=== PATIENT | female | born 1940 | race Caucasian/White ===

== ENCOUNTER 2017-05-30 10:15 | Inpatient (IN) | payer MEDICARE, BC ==
[2017-05-28 12:20] LABS: BASOPHILS % (AUTO) 0.3 % (0-1); EOSINOPHILS # (AUTO) 0.4 X10'3 (0-0.9); EOSINOPHILS % (AUTO) 4.6 % (0-6); LYMPHOCYTES # (AUTO) 1.9 X10'3 (1.1-4.8); LYMPHOCYTES % (AUTO) 24.2 % (21-51); MEAN CORPUSCULAR HEMOGLOBIN 31.3 PG (27.0-31.0); MEAN CORPUSCULAR HGB CONC 33.7 % (33.0-36.5); MEAN CORPUSCULAR VOLUME 92.9 FL (78-98); MEAN PLATELET VOLUME 7.7 FL (7.4-10.4); MONOCYTES # (AUTO) 0.7 X10'3 (0-0.9); MONOCYTES % (AUTO) 9.4 % (2-12); NEUTROPHILS # (AUTO) 4.8 X10'3 (1.8-7.7); NEUTROPHILS % (AUTO) 61.5 % (42-75); PRE OP HEMATOCRIT 40.2 % (35.0-45.0); PRE OP HEMOGLOBIN 13.6 g/dL (12.0-16.0); PRE OP PLATELET COUNT 282 X10'3 (140-440); RED BLOOD COUNT 4.33 X10'6 (4.20-5.60); RED CELL DISTRIBUTION WIDTH 15.1 % (11.5-14.5)
[2017-05-28 12:20] LABS: CLARITY,URINE SLIGHTLY CLOUDY (Clear); COLOR,URINE YELLOW (Yellow); GLUCOSE, URINE NEGATIVE (Neg); KETONES,URINE NEGATIVE (Neg); LEUKOCYTE ESTERASE ,URINE NEGATIVE (Neg); NITRITES, URINE NEGATIVE (Neg); OCCULT BLOOD,URINE NEGATIVE (Neg); PH,URINE 5.5 (4.8-8.0); PROTEIN,URINE NEGATIVE (Neg); UROBILINOGEN,URINE 0.2 E.U/dL (0.2-1.0)
[2017-05-28 12:26] LABS: UA COLLECTION TYPE NON-SPECIFIED
[2017-05-28 12:27] LABS: MUCUS STRANDS MODERATE /LPF (Neg); SQUAMOUS EPITHELIAL CELL,UR MODERATE /LPF (FEW)
[2017-05-28 12:28] LABS: BACTERIA,URINE 2+ /HPF (Neg); RBC,URINE 0-2 /HPF (0-2)
[2017-05-28 12:35] LABS: PRE OP INR 1.3 INR; PRE OP PROTIME 13.1 SECONDS (9.0-12.0)
[2017-05-28 12:38] LABS: ALBUMIN 3.4 G/DL (3.4-5.0); ALBUMIN/GLOBULIN RATIO 0.9 (1.1-1.5); ALKALINE PHOSPHATASE 105 IU/L (46-116); BLOOD UREA NITROGEN 28 MG/DL (7-18); BUN/CREATININE RATIO 30.4 (6.6-38.0); CALCIUM 9.2 MG/DL (8.5-10.1); CHLORIDE 103 MMOL/L (99-107); CREATININE 0.92 MG/DL (0.40-0.90); PRE OP ALT 67 U/L (30-65); PRE OP ANION GAP 10 (8-16); PRE OP AST 48 U/L (10-37); PRE OP BILIRUB, TOTAL 0.7 MG/DL (0.0-1.0); PRE OP GLUCOSE 81 MG/DL (70-104); PRE OP POTASSIUM 3.8 MMOL/L (3.4-5.1); PRE OP SODIUM 141 MMOL/L (135-145); TOTAL CARBON DIOXIDE 28.5 MMOL/L (24-32); TOTAL PROTEIN 7.4 G/DL (6.4-8.2); eGFR 59 ML/MIN
[2017-05-30] VITALS (15 sets, daily range): BP systolic 80–172; BP diastolic 32–75
[~2017-05-30] VITALS: Ht 158.8 cm; Wt 60.9 kg
[~2017-05-30 10:15] MED LIST: ALBU8.5H8 IH; AMIO200T57 PO; ATOR10TA70 PO; CARV6.253 PO; DOCUMENT DATE & TIME OF BETA-BLOCKER PO ONE; ESTR0.5T PO; FLUT1AER INH; FURO-149 PO; LEVO75TA7 PO; SPIR25TA3 PO; WARF2TAB7 PO; WARF3TAB56 PO; acetaminophen 325mg tablet PO ONE; albuterol 2.5 MG/3 ML nebule NEB ONE; cefazolin/dext.iso 2gm/50ml 50 ML IV ONE; celeCOXIB 100mg capsule PO ONE; famotidine 20mg tablet PO ONE; gabapentin 300mg capsule PO ONE; metoclopramide 5 mg/ml inj IV ONE; ringers solution, lacted 1,000 ML IV SCH
[2017-05-30] MEDS ORDERED: vancomycin/NS 1 GM ADD-VANTAGE 250 ML X 1 DOSE IV ONE (11:10)
[2017-05-30] MEDS: metoclopramide 10mg tablet PO SCH ×2 (11:23→20:00)
[2017-05-30] MEDS ORDERED: epiNEPHrine 1 mg/ml inj ONE ×3 (11:44→12:50)
[2017-05-30] MEDS ORDERED: ketorolac trometh. 30mg/ml inj. ONE (11:44)
[2017-05-30] MEDS ORDERED: cloNIDine hcl/PF 100mcg/ml inj ONE (11:44)
[2017-05-30] MEDS ORDERED: vancomycin 1,000mg inj ONE (11:45)
[2017-05-30] MEDS ORDERED: ROPIVAcaine 0.5% (5mg/ml) 30ml vial ONE (11:45)
[2017-05-30] MEDS ORDERED: tranexamic acid inj. 1,000 MG in normal saline 100ml IV soln 90 ML IV ONE (12:00)
[2017-05-30] MEDS ORDERED: furosemide 40mg tablet PO PRN (12:05)
[2017-05-30] MEDS ORDERED: BUPIVAcaine/PF 2.5 mg/ml (0.25%) 30ml vial ONE (12:15)
[2017-05-30] MEDS ORDERED: BUPIVAcaine/dex-water/PF 7.5 mg/ml 2ml ampul ONE (12:15)
[2017-05-30] MEDS ORDERED: MORPHINE SULFATE/PF 0.5 MG/ML 10ML AMPUL ONE (12:30)
[2017-05-30] MEDS ORDERED: MIDAZolam 1mg/ml 10ml vial ONE (12:30)
[2017-05-30] MEDS ORDERED: albuterol 2.5 MG/3 ML nebule NEB PRN (12:45)
[2017-05-30] MEDS ORDERED: heparin 10,000 units/1 ML INJ ONE (12:53)
[2017-05-30] MEDS ORDERED: ringers solution, lacted 1,000 ML IV SCH (13:22)
[2017-05-30] MEDS ORDERED: naloxone 2mg/2ml inj 1.2 MG in normal saline 500ml IV soln 500 ML IV PRN (13:23)
[2017-05-30] MEDS ORDERED: proCHLORperazine 10 MG/2 ml inj IV PRN (13:25)
[2017-05-30] MEDS ORDERED: morphine 2 MG/ML inj. syringe IV PRN ×2 (13:25)
[2017-05-30] MEDS ORDERED: ondansetron/PF 4mg/2ml inj IV PRN ×3 (13:25→15:40)
[2017-05-30] MEDS ORDERED: meperidine/PF 50mg/ml syringe IV PRN ×3 (13:25)
[2017-05-30] MEDS ORDERED: diphenhydrAMINE 50 mg/ml inj IV PRN (13:25)
[2017-05-30] MEDS ORDERED: ePHEDrine 50MG/ML INJ. ONE (13:43)
[2017-05-30] MEDS ORDERED: propofol inj 20 ML IV ONE ×2 (13:43)
[2017-05-30] MEDS ORDERED: bisacodyl 10mg suppository rectal RC PRN (15:40)
[2017-05-30] MEDS ORDERED: HYDROmorphone inj. 0.5 MG/0.5 ML DISP.SYRIN IV PRN ×2 (15:40)
[2017-05-30] MEDS ORDERED: diphenhydrAMINE 25mg capsule PO PRN ×2 (15:40)
[2017-05-30] MEDS ORDERED: HYDROcodone/acetaminophen 10/325mg tab PO PRN (15:40)
[2017-05-30] MEDS ORDERED: acetaminophen 325mg tablet PO PRN (15:40)
[2017-05-30] MEDS ORDERED: magnesium hydroxide 30ml (MOM) UD suspension PO PRN (15:40)
[2017-05-30] MEDS: cefazolin 1gm/NS 100mL 100 ML IV SCH ×2 (17:06→23:52)
[2017-05-30] MEDS: potassium cl 20mEq in 1/2 NS 1,000 ML IV SCH ×2 (17:06→23:38)
[2017-05-30 17:09] LABS: INR 1.1 INR; PROTHROMBIN TIME 11.7 SECONDS (9.0-12.0)
[2017-05-30 17:22] LABS: ALANINE AMINOTRANSFERASE 46 U/L (12-78); ALBUMIN 2.5 G/DL (3.4-5.0); ALBUMIN/GLOBULIN RATIO 0.9 (1.1-1.5); ALKALINE PHOSPHATASE 67 IU/L (46-116); ASPARTATE AMINO TRANSFERASE 43 U/L (10-37); BILIRUBIN,DIRECT 0.1 MG/DL (0-0.3); BILIRUBIN,TOTAL 0.5 MG/DL (0.1-1.0); TOTAL PROTEIN 5.2 G/DL (6.4-8.2)
[2017-05-30] MEDS ORDERED: vancomycin/NS 1 GM ADD-VANTAGE 250 ML IV SCH (20:00)
[2017-05-30] MEDS: carvedilol 6.25mg tablet PO SCH (20:00)
[2017-05-30] MEDS: ascorbic acid 500mg tablet PO SCH (20:33)
[2017-05-30] MEDS: gabapentin 300mg capsule PO SCH (20:34)
[2017-05-30] MEDS: sennosides 8.6mg tablet PO SCH (20:34)
[2017-05-30] MEDS ORDERED: warfarin 3mg tablet PO SCH (21:00)
[2017-05-31] VITALS (13 sets, daily range): BP systolic 94–137; BP diastolic 30–65
[2017-05-31] MEDS: metoclopramide 10mg tablet PO SCH ×4 (02:24→20:45)
[2017-05-31] MEDS: potassium cl 20mEq in 1/2 NS 1,000 ML IV SCH (03:31)
[2017-05-31] MEDS: HYDROcodone/acetaminophen 10/325mg tab PO PRN ×2 (05:12→20:49)
[2017-05-31 06:20] LABS: BASOPHILS % (AUTO) 0.5 % (0-1); EOSINOPHILS # (AUTO) 0.2 X10'3 (0-0.9); EOSINOPHILS % (AUTO) 4.2 % (0-6); HEMATOCRIT 27.1 % (35.0-45.0); HEMOGLOBIN 9.2 g/dl (12.0-16.0); LYMPHOCYTES # (AUTO) 1.1 X10'3 (1.1-4.8); LYMPHOCYTES % (AUTO) 20.3 % (21-51); MEAN CORPUSCULAR HEMOGLOBIN 31.2 PG (27.0-31.0); MEAN CORPUSCULAR VOLUME 91.7 FL (78-98); MEAN PLATELET VOLUME 7.7 FL (7.4-10.4); MONOCYTES # (AUTO) 0.5 X10'3 (0-0.9); MONOCYTES % (AUTO) 9.8 % (2-12); NEUTROPHILS # (AUTO) 3.5 X10'3 (1.8-7.7); NEUTROPHILS % (AUTO) 65.2 % (42-75); PLATELET COUNT 214 X10'3 (140-440); RED BLOOD COUNT 2.96 X10'6 (4.20-5.60); RED CELL DISTRIBUTION WIDTH 15.5 % (11.5-14.5); WHITE BLOOD COUNT 5.4 X10'3 (4.5-11.0)
[2017-05-31 06:29] LABS: INR 1.1 INR; PROTHROMBIN TIME 10.9 SECONDS (9.0-12.0)
[2017-05-31 06:31] LABS: POTASSIUM 4.7 MMOL/L (3.5-5.1); SODIUM 135 MMOL/L (135-145)
[2017-05-31 06:32] LABS: ANION GAP 9 (8-16); CHLORIDE 104 MMOL/L (99-107); TOTAL CARBON DIOXIDE 22.5 MMOL/L (24-32)
[2017-05-31] MEDS: carvedilol 6.25mg tablet PO SCH ×2 (07:03→20:00)
[2017-05-31] MEDS: atorvastatin 10mg tablet PO SCH (07:14)
[2017-05-31] MEDS: ascorbic acid 500mg tablet PO SCH ×2 (07:14→20:46)
[2017-05-31] MEDS: spironolactone 25 MG tablet PO SCH (07:14)
[2017-05-31] MEDS: gabapentin 300mg capsule PO SCH ×3 (07:14→20:47)
[2017-05-31] MEDS: levoTHYROXINE 75mcg tablet PO SCH (07:15)
[2017-05-31] MEDS: amiodarone 200mg tablet PO SCH (07:15)
[2017-05-31] MEDS: multivitamins, therapeutics tablet PO SCH (07:15)
[2017-05-31] MEDS: Protein Shake (high protein) 240ml (8oz) cup PO SCH (18:51)
[2017-05-31] MEDS: sennosides 8.6mg tablet PO SCH (20:47)
[2017-05-31] MEDS ORDERED: warfarin 10mg tablet PO ONE (21:00)
[2017-06-01] VITALS (15 sets, daily range): BP systolic 106–133; BP diastolic 29–72
[2017-06-01] MEDS: metoclopramide 10mg tablet PO SCH ×4 (02:14→20:13)
[2017-06-01] MEDS: HYDROcodone/acetaminophen 10/325mg tab PO PRN ×2 (04:45→13:39)
[2017-06-01 06:30] LABS: INR 1.1 INR; PROTHROMBIN TIME 11.1 SECONDS (9.0-12.0)
[2017-06-01 06:32] LABS: BASOPHILS % (AUTO) 0.1 % (0-1); EOSINOPHILS # (AUTO) 0.3 X10'3 (0-0.9); EOSINOPHILS % (AUTO) 4.7 % (0-6); HEMATOCRIT 22.3 % (35.0-45.0); HEMOGLOBIN 7.7 g/dl (12.0-16.0); LYMPHOCYTES # (AUTO) 1.3 X10'3 (1.1-4.8); LYMPHOCYTES % (AUTO) 19.9 % (21-51); MEAN CORPUSCULAR HEMOGLOBIN 31.6 PG (27.0-31.0); MEAN CORPUSCULAR HGB CONC 34.4 % (33.0-36.5); MEAN CORPUSCULAR VOLUME 91.8 FL (78-98); MEAN PLATELET VOLUME 7.9 FL (7.4-10.4); MONOCYTES # (AUTO) 0.7 X10'3 (0-0.9); NEUTROPHILS # (AUTO) 4.1 X10'3 (1.8-7.7); NEUTROPHILS % (AUTO) 64.3 % (42-75); PLATELET COUNT 190 X10'3 (140-440); RED BLOOD COUNT 2.43 X10'6 (4.20-5.60); RED CELL DISTRIBUTION WIDTH 15.4 % (11.5-14.5); WHITE BLOOD COUNT 6.3 X10'3 (4.5-11.0)
[2017-06-01] MEDS: levoTHYROXINE 75mcg tablet PO SCH (07:18)
[2017-06-01] MEDS: amiodarone 200mg tablet PO SCH (07:18)
[2017-06-01] MEDS: atorvastatin 10mg tablet PO SCH (07:18)
[2017-06-01] MEDS: gabapentin 300mg capsule PO SCH ×3 (07:18→20:12)
[2017-06-01] MEDS: ascorbic acid 500mg tablet PO SCH ×2 (07:18→20:13)
[2017-06-01] MEDS: carvedilol 6.25mg tablet PO SCH ×2 (07:18→20:12)
[2017-06-01] MEDS: multivitamins, therapeutics tablet PO SCH (07:18)
[2017-06-01] MEDS: spironolactone 25 MG tablet PO SCH (07:18)
[2017-06-01] MEDS: Protein Shake (high protein) 240ml (8oz) cup PO SCH ×3 (08:21→18:00)
[2017-06-01] MEDS: sennosides 8.6mg tablet PO SCH (20:13)
[2017-06-01] MEDS ORDERED: warfarin 5mg tablet PO ONE (21:00)
[2017-06-01] MEDS ORDERED: warfarin 1mg tablet PO SCH (21:00)
[2017-06-02] MEDS: metoclopramide 10mg tablet PO SCH ×2 (03:05→09:03)
[2017-06-02] MEDS: HYDROcodone/acetaminophen 10/325mg tab PO PRN (05:22)
[2017-06-02 06:02] LABS: BASOPHILS % (AUTO) 0.2 % (0-1); EOSINOPHILS # (AUTO) 0.4 X10'3 (0-0.9); EOSINOPHILS % (AUTO) 5.3 % (0-6); HEMATOCRIT 29.5 % (35.0-45.0); LYMPHOCYTES # (AUTO) 1.4 X10'3 (1.1-4.8); LYMPHOCYTES % (AUTO) 19.6 % (21-51); MEAN CORPUSCULAR HEMOGLOBIN 31.2 PG (27.0-31.0); MEAN CORPUSCULAR VOLUME 91.9 FL (78-98); MEAN PLATELET VOLUME 7.9 FL (7.4-10.4); NEUTROPHILS # (AUTO) 4.5 X10'3 (1.8-7.7); NEUTROPHILS % (AUTO) 61.9 % (42-75); PLATELET COUNT 196 X10'3 (140-440); RED BLOOD COUNT 3.21 X10'6 (4.20-5.60); RED CELL DISTRIBUTION WIDTH 15.4 % (11.5-14.5); WHITE BLOOD COUNT 7.3 X10'3 (4.5-11.0)
[2017-06-02 06:11] LABS: INR 1.4 INR; PROTHROMBIN TIME 14.7 SECONDS (9.0-12.0)
[2017-06-02 07:00] VITALS: BP 113/44
[2017-06-02] MEDS ORDERED: warfarin 5mg tablet PO ONE (09:00)
[2017-06-02] MEDS: ascorbic acid 500mg tablet PO SCH (09:01)
[2017-06-02] MEDS: amiodarone 200mg tablet PO SCH (09:01)
[2017-06-02] MEDS: atorvastatin 10mg tablet PO SCH (09:01)
[2017-06-02] MEDS: carvedilol 6.25mg tablet PO SCH (09:01)
[2017-06-02] MEDS: gabapentin 300mg capsule PO SCH (09:02)
[2017-06-02] MEDS: Protein Shake (high protein) 240ml (8oz) cup PO SCH (09:02)
[2017-06-02] MEDS: spironolactone 25 MG tablet PO SCH (09:02)
[2017-06-02] MEDS: multivitamins, therapeutics tablet PO SCH (09:03)
[2017-06-02] MEDS: levoTHYROXINE 75mcg tablet PO SCH (09:03)
== END 2017-06-02 11:55 | DRG 467 ==
LOC: PAS 10:15 → PAS IN 10:17 → EDSTATUS 13:00 → ORTHO 4S 16:30
PROVIDERS: ADMIT Orthopaedic Surgery; ATTEND Orthopaedic Surgery
PROC: 0SP90JZ Removal of Synthetic Substitute from Right Hip Joint, Open Approach (ICD-10-PCS; 2017-05-30)
PROC: 0QS604Z Reposition Right Upper Femur with Internal Fixation Device, Open Approach (ICD-10-PCS; 2017-05-30)
PROC: 0SR9069 Replacement of Right Hip Joint with Oxidized Zirconium on Polyethylene Synthetic Substitute, Cemented, Open Approach (ICD-10-PCS; principal; 2017-05-30 12:22)
PROC: 30233N1 Transfusion of Nonautologous Red Blood Cells into Peripheral Vein, Percutaneous Approach (ICD-10-PCS; 2017-06-01)
DX: T84.050A Periprosthetic osteolysis of internal prosthetic right hip joint, initial encounter (principal); D62 Acute posthemorrhagic anemia; J44.9 Chronic obstructive pulmonary disease, unspecified; I48.91 Unspecified atrial fibrillation; M84.451A Pathological fracture, right femur, initial encounter for fracture; T84.090A Other mechanical complication of internal right hip prosthesis, initial encounter; M19.041 Primary osteoarthritis, right hand; Z96.643 Presence of artificial hip joint, bilateral; E03.9 Hypothyroidism, unspecified; E78.5 Hyperlipidemia, unspecified; I10 Essential (primary) hypertension; Y79.2 Prosthetic and other implants, materials and accessory orthopedic devices associated with adverse incidents; Y83.8 Other surgical procedures as the cause of abnormal reaction of the patient, or of later complication, without mention of misadventure at the time of the procedure; Z90.710 Acquired absence of both cervix and uterus; Z79.82 Long term (current) use of aspirin; Z79.899 Other long term (current) drug therapy; Z82.3 Family history of stroke; Z82.49 Family history of ischemic heart disease and other diseases of the circulatory system; Y92.89 Other specified places as the place of occurrence of the external cause
CPT/HCPCS: 36415; 71046; 72170; 80051; 80053; 80076; 81001; 84439; 84443; 85025; 85610; 85730; 86885; 86900; 86901; 86920; 87070; 87088; 93005; 94640; 94760; 97110; 97116; 97161; 97530; A4615; A6213; A6449; A7000; C1713; C1758; C1776; J0171; J0690; J0735; J1644; J1885; J2250; J2274; J2704; J2795; J3370; J3490; J7030; J7120; J8597; P9016